=== PATIENT | female | born 1990 | race Two or more races ===

== ENCOUNTER 2025-08-14 12:56 | Emergency (ER) | payer MEDICAID, OTHER ==
[~2025-08-14] VITALS: Ht 157.5 cm; Wt 71.7 kg
[2025-08-14 12:58] VITALS: BP 122/74; PULSE 88; RESP 18; TEMP 98.3; O2SAT 99
--- NOTE | 2025-08-14 13:31 | ED.PDOC ---
SITE MANAGER HPI Comments 35 year old female presents to the ED with a chief complaint of vaginal bleeding onset today (08/14/25). Patient states she is approximately 8 weeks , was seen by OBGYN 2 weeks ago, was confirmed. She is currently experiencing cramping as well as vaginal bleeding, LMP was May 2025, P:1 A:1. Denies any PMHx as well as fever, chills, dysuria, hematuria, nausea, vomiting, diarrhea, hematemesis. No other symptoms or modifying factors present at this time. Chief Complaint: Vaginal Bleed Time Seen by MD: 13:25 Reviewed Notes: Medications, Allergies Allergies: Coded Allergies: NO KNOWN ALLERGIES (Unverified , 08/14/25) Mode of Arrival: Ambulatory Timing: Hours Prehospital treatment: None Severity: Moderate Vaginal Discharge: None Vaginal Lesions: None Bleeding Quality: Bright Red Vaginal Mass: None Onset Of Mass/Bleeding: Spontaneous Sexual Activity: Control: None History of: Current Symptoms of Possible : Missed Period Associated Signs and Symptoms: Vaginal Bleeding, Cramping Past Medical History PAST MEDICAL HISTORY: Denies Surgical History: Denies all surgeries JUNIOR TECHNICAL WRITER History: No Pertinent JUNIOR TECHNICAL WRITER History Family History Family History: Reviewed,noncontributory to illness, No family hx of Cancer, No family hx of DM, No family hx of Heart linda, No family hx of HTN, No family hx ofKidney linda, No family hx of Liver linda, No family hx of Lung linda, No family hx of Stroke Social History Smoker: Non-Smoker Alcohol: Denies ETOH Use Drugs: Denies Drug Use Lives In: Home Constitutional: denies: chills, diaphoresis, fatigue, fever, malaise, sweats, weakness, others EENTM: denies: blurred vision, double vision, ear bleeding, ear discharge, ear drainage, ear pain, ear ringing, eye pain, eye redness, hearing loss, mouth pain, mouth swelling, nasal discharge, nose bleeding, nose congestion, nose pain, photophobia, tearing, throat pain, throat swelling, voice changes, others Respiratory: denies: cough, hemoptysis, orthopnea, SOB at rest, shortness of breath, SOB with excertion, stridor, wheezing, others Cardiovascular: denies: chest pain, dizzy spells, diaphoresis, Dyspnea on exertion, edema, irregular heart beat, left arm pain, lightheadedness, palpitations, PND, syncope, others Gastrointestinal: denies: abdomen distended, abdominal pain, blood streaked bowels, constipated, diarrhea, dysphagia, difficulty swallowing, hematemesis, melena, nausea, poor appetite, poor fluid intake, rectal bleeding, rectal pain, vomiting, others Genitourinary: reports: abnormal vagina bleeding, pain, ; denies: burning, dyspareunia, dysuria, flank pain, frequency, hematuria, incontinence, vagina discharge, urgency, others Neurological: denies: dizziness, fainting, headache, left sided numbness, left sided weakness, numbness, paresthesia, pre-existing deficit, right sided numbness, right sided weakness, seizure, speech problems, tingling, tremors, weakness, others Musculoskeletal: denies: back pain, gout, joint pain, joint swelling, muscle pain, muscle stiffness, neck pain, others Integumetry: denies: bruises, change in color, change in hair/nails, dryness, laceration, lesions, lumps, rash, wounds, others Allergic/Immunocompromised: denies: Difficulty Healing, Frequent Infections, Hives, Itching, others Hematologic/Lymphatic: denies: anemia, blood clots, easy bleeding, easy bruising, swollen glands, others Endocrine: denies: excessive hunger, excessive sweating, excessive thirst, excessive urination, flushing, intolerance to cold, intolerance to heat, unexplained weight gain, unexplained weight loss, others Psychiatric: denies: anxiety, bipolar disorder, depression, hopeless, panic disorder, schizophrenia, sleepless, suicidal, others All Other Systems: Reviewed and Negative Physical Exam General Appearance: Moderate Distress, Normal HEENT: Normal ENT Inspection, Pharynx Normal, TMs Normal Neck: Full Range of Motion, Non-Tender, Normal, Normal Inspection Respiratory: Chest Non-Tender, Lungs Clear, No Accessory Muscle Use, No Respiratory Distress, Normal Breath Sounds Cardiovascular: No Edema, No JVD, No Murmur, No Gallop, Normal Peripheral Pulses, Regular Rate/Rhythm Breast Exam: Deferred Gastrointestinal: No Organomegaly, Non Tender, No Pulsatile Mass, Normal Bowel Sounds, Soft Genitalia: Deferred Pelvic: Deferred Rectal: Deferred Extremities: No calf tenderness, Normal capillary refill, Normal inspection, Normal range of motion, Non-tender, No pedal edema Musculoskeletal : Apperance: Normal Neurologic: Alert, telehealth director II-XII nml as Tested, No Motor Deficits, Normal Affect, Normal Mood, No Sensory Deficits Cerebellar Function: Normal Reflexes: Normal Skin: Dry, Normal Color, Warm Peripheral Pulses: 3+ Radial (R), 3+ Radial (L) Lymphatic: No Adenopathy Was a procedure done? Was a procedure done?: No Differential Diagnosis (JUNIOR TECHNICAL WRITER) Vaginal Bleeding: - Incomplete, - Missed, - Threatened, UTI X-Ray, Labs, Meds, VS Vital Signs Date Time Temp Pulse Resp B/P (MAP) Pulse Ox O2 Delivery O2 Flow Rate FiO2 08/14/25 12:58 98.3 88 18 122/74 99 98.3 Lab Test 08/14/25 17:00 08/14/25 13:41 Range/Units Urine Color Pending Urine Clarity Pending Urine pH Pending Urine Specific [place] Pending Urine Protein Pending Urine Ketones Pending Urine Blood Pending Urine Nitrite Pending Urine Bilirubin Pending Urine Urobilinogen Pending Urine Leukocyte Esterase Pending Urine RBC Pending Urine Microscopic WBC Pending Urine Squamous Epithelial Cells Pending Urine Bacteria Pending Urine Glucose Pending Beta HCG, Quantitative 56003.6 H 1.5-4.2 mIU/mL Patient alert. States that she has been having vaginal bleeding. Vitals stable. Answering questions. Not in distress. No leg swelling. Ultrasound reveals without heartbeat early Explained to the patient. Was told to follow up with her OBGYN. Was told to follow up with her primary care physician. Was told to come back if there is any problem. Time of 1ST Reevaluation: 13:55 Reevaluation 1ST: Unchanged Patient Education/Counseling: Diagnosis, Treatment, Prognosis Family Education/Counseling: No Family Present Departure 1 Departure Time of Disposition: 14:08 Impression: Primary Impression: Vaginal bleeding affecting early Disposition: 01 HOME / SELF CARE / HOMELESS Condition: Good Discharged With: Self Critical Care Note Critical Care Time?: No Stability Stability form required: No Heart Score Heart Score: Heart Score Response (Comments) Value History N/A 0 EKG N/A 0 Age N/A 0 Risk Factors N/A 0 Troponin N/A 0 Total 0 I personally scribed for JANICE EVANS MD ([email or web address]) on 08/14/25 at 13:31. Electronically submitted by Tram Duff ([email or web address]). JANICE EVANS MD Aug 14, 2025 13:31
--- NOTE | 2025-08-14 15:35 | DVH ---
INDICATION: bleeding TECHNIQUE: Multiple real-time grayscale transabdominal sonographic images along with color and duplex Doppler of the uterus and ovaries were obtained. COMPARISON: US OB TRANS VAGINAL US on DOS: 08/14/25 FINDINGS: The uterus measures 10.7 x 5.9 x 3.7 cm. The endometrial stripe contains a gestational sac and pole. The right ovary measures 3 x 3.2 x 3 cm. Volume of the right ovary is 15.4 cc The left ovary measures 4.5 x 2.1 x 3.9 cm. Volume of the left ovary is 20.2 cc. There is a 1.8 x 1. 8 x 2 cm anechoic mass in the left ovary consistent with a follicle. Subsequent color and duplex Doppler interrogation of the ovaries demonstrated symmetric vascular flow to both ovaries, though this does not exclude the possibility of torsion due to the dual blood suppl y. Gestational sac is noted in the endometrial canal measuring 2.05 cm consistent with 6 weeks 4 days. Y olk sac is visible. Joanna-rump length is 0.69 cm consistent with 6 weeks 2 days. Average gestational age 6 weeks 3 days estimated date of delivery 04/06/2026. No heart rate visible. IMPRESSION: 1. Single intrauterine with average gestational age of 6 weeks 3 days. 2. No heart rate visible. 3. Follow-up recommended.
[2025-08-14 17:55] LABS: Urine Protein, UAD Negative (Negative)
== END 2025-08-14 21:37 | disposition home or self-care (01) ==
LOC: ER 12:56
DX: O20.0 Threatened abortion (principal); Z3A.01 Less than 8 weeks gestation of pregnancy
CPT/HCPCS: 36415; 76801; 76817; 81001; 84702

== ENCOUNTER 2025-08-23 14:27 | Emergency (ER) | payer MEDICAID ==
[~2025-08-23] VITALS: Ht 167.6 cm; Wt 68.2 kg
[2025-08-23 15:00] VITALS: PULSE 87; RESP 16; O2SAT 99
--- NOTE | 2025-08-23 15:48 | ED.PDOC ---
History of Present Illness HPI Comments 35F BIBA w/ the c/c of vaginal bleeding. Pt reports on currently being 8 weeks and having severe bleeding, contraptions, and blood clots all starting 10 days ago but worsened today. The pt notes on having a miscarriage in 2019. Pt is currently /1misscarriage. Denies chills, fever, N/V/D, SOB, CP. Denies any other associated symptom's, modifiers, or recent injuries or sick contact at this time. Chief Complaint: Vaginal Bleed Time Seen by MD: 15:40 Reviewed Notes: Nurses Notes, Medications, Allergies Allergies: Coded Allergies: NO KNOWN ALLERGIES (Unverified , 08/14/25) Information Source: Patient Mode of Arrival: EMS Severity: Moderate Timing: Days Duration: Since onset, Days Prehospital treatment: None Past Medical History Past Medical History (Other): 2 miscarriage Surgical History: Denies all surgeries TOOLING SUPERVISOR History: No Pertinent TOOLING SUPERVISOR History Family History Family History: Reviewed,noncontributory to illness, Unknown Social History Smoker: Non-Smoker Alcohol: Denies ETOH Use Drugs: Denies Drug Use Lives In: Home Constitutional: denies: chills, diaphoresis, fatigue, fever, malaise, sweats, weakness, others EENTM: denies: blurred vision, double vision, ear bleeding, ear discharge, ear drainage, ear pain, ear ringing, eye pain, eye redness, hearing loss, mouth pain, mouth swelling, nasal discharge, nose bleeding, nose congestion, nose pain, photophobia, tearing, throat pain, throat swelling, voice changes, others Respiratory: denies: cough, hemoptysis, orthopnea, SOB at rest, shortness of breath, SOB with excertion, stridor, wheezing, others Cardiovascular: denies: chest pain, dizzy spells, diaphoresis, Dyspnea on exertion, edema, irregular heart beat, left arm pain, lightheadedness, palpitations, PND, syncope, others Gastrointestinal: denies: abdomen distended, abdominal pain, blood streaked bowels, constipated, diarrhea, dysphagia, difficulty swallowing, hematemesis, melena, nausea, poor appetite, poor fluid intake, rectal bleeding, rectal pain, vomiting, others Genitourinary: reports: abnormal vagina bleeding, ; denies: burning, dyspareunia, dysuria, flank pain, frequency, hematuria, incontinence, pain, vagina discharge, urgency, others Neurological: denies: dizziness, fainting, headache, left sided numbness, left sided weakness, numbness, paresthesia, pre-existing deficit, right sided numb ness, right sided weakness, seizure, speech problems, tingling, tremors, weakness, others Musculoskeletal: denies: back pain, gout, joint pain, joint swelling, muscle pain, muscle stiffness, neck pain, others Integumetry: denies: bruises, change in color, change in hair/nails, dryness, laceration, lesions, lumps, rash, wounds, others Allergic/Immunocompromised: denies: Difficulty Healing, Frequent Infections, Hives, Itching, others Hematologic/Lymphatic: denies: anemia, blood clots, easy bleeding, easy bruising, swollen glands, others Endocrine: denies: excessive hunger, excessive sweating, excessive thirst, excessive urination, flushing, intolerance to cold, intolerance to heat, unexplained weight gain, unexplained weight loss, others Psychiatric: denies: anxiety, bipolar disorder, depression, hopeless, panic disorder, schizophrenia, sleepless, suicidal, others All Other Systems: Reviewed and Negative Physical Exam General Appearance: No Apparent Distress, Normal HEENT: Normal ENT Inspection, Pharynx Normal, TMs Normal Neck: Full Range of Motion, Non-Tender, Normal, Normal Inspection Respiratory: Chest Non-Tender, Lungs Clear, No Accessory Muscle Use, No Respiratory Distress, Normal Breath Sounds Cardiovascular: No Edema, No JVD, No Murmur, No Gallop, Normal Peripheral Pulses, Regular Rate/Rhythm Breast Exam: Deferred Gastrointestinal: No Organomegaly, Non Tender, No Pulsatile Mass, Normal Bowel Sounds, Soft Genitalia: Deferred Pelvic: Deferred Rectal: Deferred Extremities: No calf tenderness, Normal capillary refill, Normal inspection, Normal range of motion, Non-tender, No pedal edema Musculoskeletal : Apperance: Normal Neurologic: Alert, coat checker II-XII nml as Tested, No Motor Deficits, Normal Affect, Normal Mood, No Sensory Deficits Cerebellar Function: Normal Reflexes: Normal Skin: Dry, Normal Color, Warm Lymphatic: No Adenopathy Was a procedure done? Was a procedure done?: No Differential Dx Considerations may include: Retained material conception, dysmenorrhea, miscarriage, blood loss anemia X-Ray, Labs, Meds, VS Vital Signs Date Time Temp Pulse Resp B/P (MAP) Pulse Ox O2 Delivery O2 Flow Rate FiO2 08/23/25 20:30 81 12 109/52 (71) 98 08/23/25 18:27 98.5 80 20 96/58 (71) 99 98.5 08/23/25 16:00 84 20 105/61 (76) 98 08/23/25 15:00 87 16 99 Room Air* 0 21 08/23/25 14:54 99 Room Air* 0 21 08/23/25 14:51 98.7 85 17 109/64 (79) 99 98.7 08/23/25 14:30 98.2 85 18 115/62 99 98.2 Lab Test 08/23/25 16:15 08/23/25 15:56 Range/Units Urine Color Light-brown Yellow Urine Clarity Turbid H Clear Urine pH 6.0 5.0-9.0 Urine Specific [place] 1.026 1.001-1.035 Urine Protein 1+ H Negative Urine Ketones Negative Negative Urine Blood 3+ H Negative /uL Urine Nitrite Negative Negative Urine Bilirubin Negative Negative Urine Urobilinogen Normal Negative mg/dL Urine Leukocyte Esterase Trace Negative /uL Urine RBC 5714 0 - 4 /hpf Urine Microscopic WBC 42 H 0-5 /HPF Urine Squamous Epithelial Cells None seen <5 /hpf Urine Bacteria None seen None Seen /hpf Urine Glucose Normal Normal mg/dL White Blood Count 13.6 H 4.4-10.8 10^3/uL Red Blood Count 4.40 4.0-5.20 10^6/uL Hemoglobin 13.3 12.2-16.2 g/dL Hematocrit 39.1 36.0-46.0 % Mean Corpuscular Volume 88.9 80.0-100.0 fL Mean Corpuscular Hemoglobin 30.2 28.0-32.0 pg Mean Corpuscular Hemoglobin Concent 34.0 32.0-36.0 g/dL Red Cell Distribution Width 12.9 11.8-14.3 % Platelet Count 341 140-450 10^3/uL Mean Platelet Volume 6.9 6.9-10.8 fL Neutrophils (%) (Auto) 85.3 H 37.0-80.0 % Lymphocytes (%) (Auto) 8.4 L 10.0-50.0 % Monocytes (%) (Auto) 5.6 0.0-12.0 % Eosinophils (%) (Auto) 0.5 0.0-7.0 % Basophils (%) (Auto) 0.2 0.0-2.0 % Neutrophils # (Auto) 11.6 H 1.6-8.6 10 ^3/uL Lymphocytes # (Auto) 1.1 0.4-5.4 10 ^3/uL Monocytes # (Auto) 0.8 0-1.3 10 ^3/uL Eosinophils # (Auto) 0.1 0-0.8 10 ^3/uL Basophils # (Auto) 0 0-0.2 10 ^3/uL Nucleated Red Blood Cells 0.0 % Sodium Level 140 136-145 mmol/L Potassium Level 3.9 3.5-5.1 mmol/L Chloride Level 104 98-107 mmol/L Carbon Dioxide Level 26 20-31 mmol/L Anion Gap 10 5-15 Blood Urea Nitrogen 13 9-23 mg/dL Creatinine 0.75 0.550-1.02 mg/dL Glomerular Filtration Rate Calc 107 >90 mL/min BUN/Creatinine Ratio 17.3 10.0-20.0 Serum Glucose 106 74-106 mg/dL Calcium Level 9.2 8.7-10.4 mg/dL Beta HCG, Quantitative 8131.9 H 1.5-4.2 mIU/mL Current Medications Medications (Trade) Dose Ordered Sig/Carmelo Route Start Time Stop Time Status Last Admin Oxytocin 1,000 ml @ 150 mls/hr Q6H40M ONCE IV 08/23/25 17:00 08/23/25 23:39 08/23/25 17:14 Tranexamic Acid 1000 mg/Sodium Chloride 110 ml @ 300 mls/hr ONCE ONCE IV 08/23/25 19:45 08/23/25 20:06 DC 08/23/25 21:00 X-Ray, Labs, Meds, VS Comment Patient will be discharged home with Cytotec. Advised to place medications when she picked him up Advised to follow up with Dr. akhtar next available appointment Time of 1ST Reevaluation: 16:10 Reevaluation 1ST: Unchanged Consultation: health and wellness coordinator (Spoke with dr akhtar at 4:48 p.m.. She placed orders for 20 units Pitocin in 1 L LR, and 150 mL/hour. She is requesting call back when beta hCG comes in. She was given ultrasound report.) Patient Education/Counseling: Diagnosis, Treatment, Prognosis, Need For Follow Up (Follow up with PCP next available appointment. Follow up with Dr. Varma next available appointment) Family Education/Counseling: Diagnosis, Treatment, Prognosis SEPSIS Sepsis Screen Date sepsis recognized/suspect: Aug 23, 2025 Time Sepsis recognized/suspect: 1453 Recent Procedure: No On Antibiotic Therapy: No Respiratory Rate >20: No Heart Rate >90: No Temp<36 C (96.8 F) or >38.3 C: No SBP <90 or MAP <65 mmHG: No New Acute Mental Status Change: No Is the patient on CPAP, BIPAP,: No Physician Orders Ob Ultrasound Comp Less 14wks (08/23/25 15:35) Lact. Ringers/Oxytocin 20units (Oxytocin (08/23/25 17:00) Vital Signs Date Time Temp Pulse Resp B/P (MAP) Pulse Ox O2 Delivery O2 Flow Rate FiO2 08/23/25 20:30 81 12 109/52 (71) 98 08/23/25 18:27 98.5 80 20 96/58 (71) 99 98.5 08/23/25 16:00 84 20 105/61 (76) 98 08/23/25 15:00 87 16 99 Room Air* 0 21 08/23/25 14:54 99 Room Air* 0 21 08/23/25 14:51 98.7 85 17 109/64 (79) 99 98.7 08/23/25 14:30 98.2 85 18 115/62 99 98.2 Laboratory Tests Test 08/23/25 15:56 White Blood Count 13.6 10^3/uL (4.4-10.8) H Medications Medications Dose Ordered Sig/Carmelo Route Start Time Stop Time Status Last Admin Dose Admin Oxytocin 1,000 ml @ 150 mls/hr Q6H40M ONCE IV 08/23/25 17:00 08/23/25 23:39 08/23/25 17:14 Tranexamic Acid 1000 mg/Sodium Chloride 110 ml @ 300 mls/hr ONCE ONCE IV 08/23/25 19:45 08/23/25 20:06 DC 08/23/25 21:00 Departure 1 Departure Time of Disposition: 21:35 Impression: Primary Impression: Threatened miscarriage in early Disposition: 01 HOME / SELF CARE / HOMELESS Condition: Stable e-Prescriptions Misoprostol (Cytotec) 200 Mcg Tab 4 TAB VG ONCE, #4 TAB Prov: ASHWIN CHRISTIE 08/23/25 Discharged With: Self Critical Care Note Critical Care Time?: No Stability Stability form required: No I personally scribed for ASHWIN CHRISTIE ([email or web address]) on 08/23/25 at 15:48. Electronically submitted by [place] ([email or web address]). ASHWIN CHRISTIE Aug 23, 2025 15:48
[2025-08-23 16:27] LABS: Hematocrit 39.1 % (36.0-46.0); Hemoglobin 13.3 g/dL (12.2-16.2); Mean Corpuscular Hemoglobin 30.2 pg (28.0-32.0); Mean Corpuscular Volume 88.9 fL (80.0-100.0); Nucleated Red Blood Cells % 0.0 %
[2025-08-23 16:37] LABS: Chloride 104 mmol/L (98-107); Potassium 3.9 mmol/L (3.5-5.1); Sodium 140 mmol/L (136-145)
[2025-08-23 16:38] LABS: Anion Gap 10 (5-15); Calcium 9.2 mg/dL (8.7-10.4); Carbon Dioxide 26 mmol/L (20-31)
[2025-08-23 16:43] LABS: BUN/Creatinine Ratio 17.3 (10.0-20.0); Blood Urea Nitrogen 13 mg/dL (9-23); Glucose 106 mg/dL (74-106)
--- NOTE | 2025-08-23 16:55 | DVH ---
INDICATION: bleeding TECHNIQUE: Multiple real-time grayscale transabdominal sonographic images along with color and duplex Doppler of the uterus and ovaries were obtained. COMPARISON: US OB ULTRASOUND COMP LESS 14WKS on DOS: 08/14/25 FINDINGS: The uterus measures 9.1 x 5.1 x 4.5 cm. The endometrial stripe measures 14.7 mm. The right ovary measures 3 x 2.1 x 2.6 cm. The left ovary measures 4.8 x 1.8 x 2.3 cm. Subsequent color and duplex Doppler interrogation of the ovaries demonstrated symmetric vascular flow to both ovaries, though this does not exclude the possibility of torsion due to the dual blood suppl y. Gestational sac 1.87 cm, 6 weeks 2 days no yolk sac Metcalfe-rump length was 0.61 cm echogenic material within the endometrial canal. This is not apparent f etal pole at this time Estimated gestational age of 6 weeks 5 days; VLADISLAV: 04/15/2026 No heart rate IMPRESSION: 1. Grossly unremarkable pelvic ultrasound. 2. No IUP noted at this time. A cystic structure within the endometrial canal with internal debris. 3. Recommend follow-up study. 4. There is no heart rate or finding of definitive pole at this time.
[2025-08-23] MEDS: LACT. RINGERS/OXYTOCIN 20UNITS 1,000 ML IV ONE (17:14)
[2025-08-23 18:27] VITALS: TEMP 98.5
[2025-08-23 19:33] LABS: Urine Protein, UAD 1+ (Negative)
[2025-08-23] MEDS: TRANEXAMIC ACID 10 ML ONE (21:00)
[2025-08-23] MEDS: TRANEXAMIC ACID 1,000 MG in SODIUM CHL 0.9% 100 ML IV ONE (21:00)
[2025-08-23] MEDS ORDERED: MISO200T67 VG (21:36)
[2025-08-23 22:00] VITALS: BP 110/65; PULSE 100; RESP 16; O2SAT 99
== END 2025-08-23 22:36 | disposition home or self-care (01) ==
LOC: ER 14:27 → EDBD 14:27 → ER 22:36
DX: O03.9 Complete or unspecified spontaneous abortion without complication (principal)
CPT/HCPCS: 36415; 76801; 80048; 81001; 82947; 84702; 85025; 86850; 86900; 86901; 96365; 96366; 96368; 99285; J2590